=== PATIENT | female | born 1965 | race Caucasian/White ===

== ENCOUNTER 2021-01-16 17:03 | Emergency (ER) | payer BC, MEDICARE ==
[~2021-01-16] VITALS: Ht 170.2 cm; Wt 82.0 kg
[~2021-01-16 17:03] MED LIST: ASPI-41 PO; NO HOME MEDS
[2021-01-16 17:11] VITALS: BP 154/100
[2021-01-16] MEDS ORDERED: SULF1TAB49 PO (18:30)
== END 2021-01-16 18:44 | disposition home or self-care (01) ==
LOC: ER 17:03
DX: S81.802A Unspecified open wound, left lower leg, initial encounter (principal); F17.200 Nicotine dependence, unspecified, uncomplicated; R60.0 Localized edema; Z98.890 Other specified postprocedural states; Z88.0 Allergy status to penicillin; Z79.82 Long term (current) use of aspirin; Z79.899 Other long term (current) drug therapy; X58.XXXA Exposure to other specified factors, initial encounter; Y93.89 Activity, other specified; Y92.89 Other specified places as the place of occurrence of the external cause; Y99.8 Other external cause status
CPT/HCPCS: 99283

== ENCOUNTER 2021-10-11 16:38 | Emergency (ER) | payer MEDICARE, MEDICAID ==
[~2021-10-11] VITALS: Ht 172.7 cm; Wt 75.0 kg
[2021-10-11 17:52] VITALS: BP 158/100
== END 2021-10-11 23:47 | disposition left against medical advice (07) ==
LOC: ER 16:39
DX: E11.621 Type 2 diabetes mellitus with foot ulcer (principal); Z53.21 Procedure and treatment not carried out due to patient leaving prior to being seen by health care provider
CPT/HCPCS: 82948

== ENCOUNTER 2023-06-09 15:07 | Emergency (ER) | payer BC, MEDICAID ==
[~2023-06-09] VITALS: Ht 170.2 cm; Wt 59.1 kg
[2023-06-09 15:23] VITALS: RESP 19
[2023-06-09 16:28] VITALS: BP 119/85; PULSE 103; TEMP 97.2; O2SAT 99
== END 2023-06-09 23:51 | disposition left against medical advice (07) ==
LOC: ER 15:07
DX: R73.9 Hyperglycemia, unspecified (principal); Z53.21 Procedure and treatment not carried out due to patient leaving prior to being seen by health care provider
CPT/HCPCS: 82948; 99281

== ENCOUNTER 2023-08-30 14:03 | Emergency (ER) | payer BC, MEDICAID ==
[~2023-08-30] VITALS: Ht 170.2 cm; Wt 59.1 kg
[~2023-08-30 14:03] MED LIST changes: -ASPI-41 PO; +ASPI325T88 PO; +ATOR40TA PO; +ESCI10TA PO; +INSU100V9 SQ; +LINE600T14 PO; -NO HOME MEDS
[2023-08-30 16:18] LABS: BASOPHILS % (AUTO) 0.5 % (0-1); EOSINOPHILS # (AUTO) 0.1 X10'3 (0-0.9); EOSINOPHILS % (AUTO) 1.1 % (0-6); HEMATOCRIT 37.5 % (35.0-45.0); HEMOGLOBIN 12.4 g/dl (12.0-16.0); LYMPHOCYTES # (AUTO) 2.1 X10'3 (1.1-4.8); LYMPHOCYTES % (AUTO) 24.4 % (21-51); MEAN CORPUSCULAR HEMOGLOBIN 30.2 PG (27.0-31.0); MEAN CORPUSCULAR VOLUME 91.4 FL (78-98); MEAN PLATELET VOLUME 8.6 FL (7.4-10.4); MONOCYTES # (AUTO) 0.7 X10'3 (0-0.9); MONOCYTES % (AUTO) 8.3 % (2-12); NEUTROPHILS # (AUTO) 5.8 X10'3 (1.8-7.7); NEUTROPHILS % (AUTO) 65.7 % (42-75); PLATELET COUNT 381 X10'3 (140-440); RED CELL DISTRIBUTION WIDTH 14.2 % (11.5-14.5); WHITE BLOOD COUNT 8.8 X10'3 (4.5-11.0)
[2023-08-30 16:33] LABS: ALANINE AMINOTRANSFERASE 87 U/L (12-78); ALBUMIN 3.8 G/DL (3.4-5.0); ALKALINE PHOSPHATASE 137 IU/L (46-116); ANION GAP 4 (8-16); ASPARTATE AMINO TRANSFERASE 40 U/L (10-37); BILIRUBIN,TOTAL 0.3 MG/DL (0.1-1.0); BLOOD UREA NITROGEN 10 MG/DL (7-18); BUN/CREATININE RATIO 23.3 (10.0-20.0); CALCIUM 8.6 MG/DL (8.5-10.1); CHLORIDE 98 MMOL/L (99-107); CREATININE 0.43 MG/DL (0.40-0.90); GLUCOSE 399 MG/DL (70-104); POTASSIUM 4.3 MMOL/L (3.5-5.1); SODIUM 133 MMOL/L (135-145); TOTAL CARBON DIOXIDE 31.1 MMOL/L (24-32); TOTAL PROTEIN 7.5 G/DL (6.4-8.2); eCRCL 136 ML/MIN; eGFR > 90 ML/MIN
[2023-08-30 17:16] VITALS: RESP 12; TEMP 98.6
[2023-08-30 20:24] LABS: ABG BASE EXCESS 4.2 mmol/L (-2.0-2.0); ABG HCO3 28.1 mmol/L (22.0-26.0); ABG OXYGEN SATURATION 96.7 % (94-97); ABG PCO2 (T) 39.3 mmHg (32.0-45.0); ABG PH (T) 7.472 (7.350-7.450); ALLEN'S TEST POSITIVE; FCOHb 2.1 % (0.0-3.9); FHHb 3.2 % (0.0-5.0); FMetHb 0.1 % (0.0-1.5); FO2Hb 94.6 % (94-97); MODE ROOM AIR; TOTAL HEMOGLOBIN 13.3 G/dl (12.0-16.0)
[2023-08-30] MEDS ORDERED: normal saline 1000ml 1,000 ML IV ONE (21:45)
[2023-08-30] MEDS ORDERED: insulin regular, human 10 units/0.1 ml syringe SQ ONE (21:45)
[2023-08-30 22:06] LABS: BILIRUBIN,URINE NEGATIVE (Neg); CLARITY,URINE SLIGHTLY CLOUDY (Clear); COLOR,URINE YELLOW (Yellow); GLUCOSE, URINE >=1000 mg/dl (Neg); KETONES,URINE NEGATIVE (Neg); LEUKOCYTE ESTERASE ,URINE NEGATIVE (Neg); NITRITES, URINE NEGATIVE (Neg); OCCULT BLOOD,URINE NEGATIVE (Neg); PROTEIN,URINE TRACE mg/dl (Neg); UROBILINOGEN,URINE 0.2 E.U/dL (0.2-1.0)
[2023-08-30 22:16] LABS: UA COLLECTION TYPE CLN CATCH MIDSTREAM
[2023-08-30 22:19] LABS: MUCUS STRANDS MANY /LPF (Neg); RBC,URINE 0-2 /HPF (0-2); SQUAMOUS EPITHELIAL CELL,UR MANY /LPF (FEW); WBC,URINE 0-4 /HPF (0-4)
[2023-08-30 22:20] LABS: BACTERIA,URINE FEW /HPF (Neg)
[2023-08-30 22:22] LABS: TRANSITIONAL EPI CELLS,URINE FEW /HPF
[2023-08-31 00:12] VITALS: BP 137/94; PULSE 100; O2SAT 98
== END 2023-08-31 00:14 | disposition home or self-care (01) ==
LOC: ER 14:04
DX: E11.65 Type 2 diabetes mellitus with hyperglycemia (principal); Z88.0 Allergy status to penicillin; Z79.82 Long term (current) use of aspirin; Z79.899 Other long term (current) drug therapy
CPT/HCPCS: 36415; 36600; 80053; 81001; 82803; 82948; 85018; 85025; 96360; 96372; 99283; J1815; J7030; A6446; A6449